=== PATIENT | female | born 1980 | race Caucasian/White ===

== ENCOUNTER 2016-08-06 23:49 | Observation (INO) ==
--- NOTE | 2016-08-07 00:17 | OB/GYN Progress Note ---
Date of Encounter: 08/07/16 Time of Encounter: 00:16 - Assessment and Plan (1) NST (non-stress test) reactive Current Visit: Yes Status: Acute Baseline heart rate in the 120s, moderate variability; 15 x 15 accels: No decelerations. (2) 37 weeks gestation of Current Visit: Yes Status: Acute Patient describes intermittent contractions at irregular intervals occurring over the last week, normal movement, minimal leakage of fluid throughout the day. Nitrazine test negative. Cervical exam revealed closed cervical os without dilation 0% effaced posterior cervix that was moderate to firm consistency. No evidence of active labor during the course of her stay. Fluid is most likely related to urine leakage due to gravid uterus and increased intra-abdominal pressure. [place] over the past week and presentation today as false labor. Regular movement. Reassuring reactive NST. Physical exam benign : No evidence of pooling in the posterior fornix or bleeding. Patient encouraged to keep hydrated and to maintain pelvic rest. Plan to discharge home. Return precautions given, patient expressed understanding. Subjective - Subjective Principal diagnosis: Labor evaluation Interval history: Patient is a 36-year-old female prima gravid; G1 P 0 at 37 weeks and 2 /7 days a past medical history of PCOS with metabolic syndrome, essential hypertension, hypothyroidism , anxiety, obesity who presents today for "leaking fluid intermittently all day "and intermittent contractions that do not occur at regular intervals. Patient describes small amount of unknown color of fluid small quantity that minimally squirts into her underwear. No previous episodes in the past. Associated symptoms include: Anterior abdominal cramping with contractions that does not radiate to her back. Patient has changed her underwear several times with minimal amount of fluid leakage. Patient denies odor or vaginal discharge. Patient is unsure if these episodes are positional or related to increased intra-abdominal pressure such as coughing ,sneezing, standing. Patient admits: Recent fungal infection under right breast treated with fluconazole, bronchitis and sinusitis treated with antibiotics 3 weeks ago that has since resolved. Patient denies: recent intercourse, vaginal discharge, vaginal bleeding, dysuria, pyuria, hematuria, flank pain, fever, chills, abdominal trauma or falls , nausea, vomiting. movements: Normal active fetus Labor Plan: Estimated date of delivery 08/25/16 Induction: Planned for 08/16/16 Pain control: [Epidural; Nubainl] as needed however, patient would like to try labor without epidural initially. FHT: [Baseline heart rate 120s; moderate variability; 15 x 15 accels: No decelerations] TOCO: [Contractions irregular] Cervix: dilation [closed] cm, [0] % effaced, station [-5 ], consistency [firm] , position [posterior]. care: Since 9 weeks of at regular intervals as patient is high-risk she also is seen at [facility]. OB Doctor: Jg OB history: Total pregnancies 0. Total living children 0. DROP WIRER history: Sexually active first age of intercourse 22; total partners 2. Last Pap smear 10/06/13 Abnormal Pap smear 11/22/2002, atypical squamous cell changes of undetermined significance. Sexually transmitted infections HPV/condyloma Last menstrual period 11/19/15 Menses onset age 14 Labs: Blood Type: [A positive] GBS: [Negative on 07/29/16] Rubella: IgG antibody positive/immune HbSAG: negative T.pallidum: Antibody negative Varicella: Antibody negative HIV: Negative Other: Cystic fibrosis negative, chlamydia and gonorrhea negative. Baby: [Boy] Name: To be determined Mom plans to [bottlefeed] Circumcision:[Yes] Pacifier: Yes Senior Publications Specialist: Rhea Metcalf Antepartum ROS: loss of fluid, movement normal, contractions, no vaginal bleeding Objective - Exam FHR: auscultation normal, category 1 Auscultation: bilateral: normal Abdomen: Present: normal appearance, soft, gravid Uterus: Present: normal Cervical dilation: Closed Cervix effacement: 0 station: -5
== END 2016-08-07 00:56 | disposition home or self-care (01) ==
LOC: INTOOBSV 23:49 → 1NENULAB 23:49
PROVIDERS: ADMIT Student in an Organized Health Care Education/Training Program; ATTEND Student in an Organized Health Care Education/Training Program

== ENCOUNTER → 2016-08-12 18:32 | Observation (INO) ==
[2016-08-12 16:35] LABS: Basophils % 0.2 %; Eosinophils % 0.4 %; Hematocrit 34.1 % (35.3-44.9); Hemoglobin 11.1 g/dL (11.5-15.4); Immature Granulocytes % 0.3 % (0-4); Immature Platelets 10.5 % (1.1-6.1); Lymphocytes # 1.2 K/mcL (0.6-4.6); Mean Corpuscular HGB Conc 32.6 g/dL (31.6-35.5); Mean Corpuscular Hemoglobin 27.8 pg (28.0-33.3); Mean Corpuscular Volume 85.3 fL (83.0-100.0); Mean Platelet Volume 11.2 fL (9.4-12.4); Monocytes # 0.5 K/mcL (0.0-1.3); Monocytes % 5.1 %; Neutrophils # 7.4 K/mcL (1.6-8.9); Platelet Count 217 K/mcL (140-400); Red Cell Distribution Width 14.6 % (11.5-14.5)
[2016-08-12 16:49] LABS: Alanine Aminotransferase 14 Units/L (0-55); Aspartate Amino Transferase 25 Units/L (5-34); BUN/Creatinine Ratio 13 (6-26); Blood Urea Nitrogen 9 mg/dL (7-20); Lactate Dehydrogenase 202 Units/L (159-327); Uric Acid 3.8 mg/dL (2.6-6.0); eGFR For African Americans > 60 (> 60); eGFR For Non-African Americans > 60 (> 60)
--- NOTE | 2016-08-12 17:17 | OB/GYN History & Physical ---
Date of Encounter: 08/12/16 Time of Encounter: 17:10 Assessment and Plan (1) with 38 completed weeks gestation Status: Acute Primary OB concern for PIH. Baseline BPs 110 systolic. BP on office intake 142 /88 with trace protein. Cervix fingertip/40%/-1. Assessment: at 38w 1d. BP during my evaluation: 122/82. NST reactive on external FHR. Contractions intermittant. Plan: PIH labs. Disposition pending observation and labs. May consider sending home vs induction of . May consider Cesarian pending tolerance of contractions. Patient's next appointment with Dr. Gregorio: (3 days). Patient scheduled for elective induction Friday (4 days). (2) First in adolescent 16 years of age or older in third trimester Status: Acute as above (3) Chronic hypertension Status: Acute as above (4) Gestational diabetes mellitus (GDM) Status: Acute as above Qualifiers: Gestational diabetes mellitus control: oral hypoglycemic-controlled Trimester: third trimester Qualified Code(s): O24.415 - Gestational diabetes mellitus in , controlled by oral hypoglycemic drugs History of Present Illness Chief complaint: PIH evaluation HPI: Ms. Kitchen is a 36 year old female presents from Dr. Gregorio's office with concerns regarding pre-eclampsia. Patient has chronic hypertension; systolic typically 110 range. Was 142/[address] Gregorio's office with trace urinary protein. Patient reports feeling occasional contractions. No blood or fluid vaginal discharge. Per Dr. Gregorio, DM well controlled on metformin and patient's office cervical exam was fingertip dilation, 40% effacement, -1 station. Patient's NST was reactive. Next appointment with Dr. Gregorio is . Scheduled induction Friday. unknown duration or frequency. 38w 1d PMH: Gestational diabetes. Chronic hypertension. Obesity. Hypothyroidism. Fe -deficient anemia. Depression. Medications: labetolol, metformin, zoloft, iron supplementation, synthroid Blood type A+ GBS (-) Rubella (+) Varicella (+) HbSAg (-) T. Pallidum (-) Suman Poole's note, agree with above. Patient is a 36-year-old female who had presented from the office due to some elevated blood pressures. Patient has chronic hypertension and had proteinuria. Patient was sent to have a PIH workup to make sure she is stable. All lab work came back normal protein creatinine ratio was normal. Patient is scheduled for an induction of labor at the end of the week Past Med Surg Social Fam HX - Past Medical History Medical history: hypertension Psychiatric history: anxiety - Past Surgical History Surgical History: no surgical history - Social History Smoking Status: Never smoker Smokeless Tobacco Status: No Alcohol use: none Drug use: none - Family History Mother Adopted: No Living Status: Still Living Hx Family Endocrine Disorder: Yes (diabetes) Sister Living Status: Still Living Hx Family Cardiac Disorders: Yes (mitral valve prolapse) Obstetrical History - Pregnancies : 1 Para: 0 Term: 0 : 0 Ab's: 0 Livin Medications and Allergies Labetalol [Trandate] 50 mg PO BID 04/19/16 [History] Levothyroxine [Synthroid] 88 mcg PO DAILY 04/19/16 [History] Metformin [Glucophage] 1,000 mg PO BID 04/19/16 [History] Sertraline [Zoloft] 100 mg PO DAILY 04/19/16 [History] Ferrous Sulfate 1 tab PO BID 08/12/16 [History] Vit Calc,Iron,Folic [ Vitamins] 1 tab PO DAILY 08/12/16 [ History] Allergies cephalexin [From Keflex] Allergy (Verified 08/12/16 16:36) Hives ciprofloxacin [From Cipro] Allergy (Verified 08/12/16 16:36) Hives doxycycline Allergy (Verified 08/12/16 16:36) Hives Penicillins Allergy (Verified 08/12/16 16:36) Hives Review of System OB - Constitutional Constitutional ROS IM: no fever(s), no headache(s), no lethargy, no weakness - Nose, mouth, and throat Nose, mouth and throat: no nasal congestion - Cardiovascular Cardiovascular: pedal edema, no chest pain, no claudication, no dyspnea, no lightheadedness, no palpitations - Respiratory Respiratory: no cough, no dyspnea, no wheezing, no chest congestion - Gastrointestinal Gastrointestinal: no change in bowel habits, no constipation, no cramping, no diarrhea, no heartburn, no nausea, no vomiting - Genitourinary Genitourinary: no flank pain, no pelvic pain, no vaginal discharge - Neurological Nerological: no numbness, no paresthesias, no vertigo, no weakness Exam - Constitutional Constitutional: well developed, well nourished, no acute distress, average body habitus - HEENT HEENT: EOMI, Normocephaly - Neck Neck exam: normal inspection - Lungs Respiratory exam: CTAB - Cardiovascular Cardiovascular exam: RRR, +S1, +S2 - Abdomen Abdomen: Present: bowel sounds normal, gravid, non tender. Absent: guarding noted - Extremities Extremities exam: normal capillary refill, pedal edema (trace bilatearlly), radial pulses palpable and symetrical Results Result Diagrams: 08/12/16 16:20 08/12/16 16:20 Abnormal lab results Hgb 11.1 g/dL (11.5-15.4) L 08/12/16 16:20 Hct 34.1 % (35.3-44.9) L 08/12/16 16:20 MCH 27.8 pg (28.0-33.3) L 08/12/16 16:20 RDW 14.6 % (11.5-14.5) H 08/12/16 16:20 Immature Plt Fraction 10.5 % (1.1-6.1) H 08/12/16 16:20 All other labs normal. - Attending Attestation I examined this patient and my medical decision-making was reviewed with the SANITIZER/PA/Advanced Practice Nurse/Resident Physician. I agree with the documented findings, disposition and treatment plan as described except to the extent set forth below.
[2016-08-12 17:54] LABS: Protein/Creatinine Ratio,Urine 0.12 mg/mg (0-0.20)
== END | disposition home or self-care (01) ==
LOC: 1NENULAB
PROVIDERS: ADMIT Obstetrics & Gynecology; ATTEND Obstetrics & Gynecology

== ENCOUNTER 2016-08-16 17:50 | Inpatient (IN) ==
[2016-08-16] MEDS ORDERED: Naloxone 0.4 MG/ML INJ IVP PRN (19:19)
[2016-08-16] MEDS ORDERED: Famotidine 20 MG/2 ML VIAL IVP PRN (19:19)
[2016-08-16] MEDS ORDERED: miSOPROStol 25 MCG TABLET VG ONE (19:21)
[2016-08-16 19:29] LABS: Basophils % 0.1 %; Eosinophils % 0.3 %; Hemoglobin 10.8 g/dL (11.5-15.4); Immature Granulocytes % 0.4 % (0-4); Lymphocytes # 0.9 K/mcL (0.6-4.6); Lymphocytes % 12.9 %; Mean Corpuscular HGB Conc 33.8 g/dL (31.6-35.5); Mean Corpuscular Hemoglobin 28.6 pg (28.0-33.3); Mean Corpuscular Volume 84.7 fL (83.0-100.0); Mean Platelet Volume 11.7 fL (9.4-12.4); Monocytes # 0.4 K/mcL (0.0-1.3); Monocytes % 5.1 %; Neutrophils # 5.8 K/mcL (1.6-8.9); Platelet Count 211 K/mcL (140-400); Red Blood Count 3.78 M/mcL (3.82-4.97); Red Cell Distribution Width 14.9 % (11.5-14.5); Segmented Neutrophils % 81.2 %
[2016-08-16] MEDS ORDERED: D5% in 0.45% NACL 1,000 ML IVC SCH (19:30)
--- NOTE | 2016-08-16 22:12 | Anesthesia Evaluation PreOp ---
Date of Encounter: 08/16/16 Time of Encounter: 22:10 - Past History Planned Operation: KALEN Cardiac History: HTN (chronic) Pulmonary History: Denies Any Significant HX CUSTOMS COMPLIANCE DIRECTOR History: Other (sciatica LLE > RLE) Other Medical History: Renal (proteinuria during this ), Thyroid, Other (gestational diabetes managed with metformin) Anesthesia History: No Prior Anesthetic Complications (never had any procedure requiring GA or NA; denies family h/o anesthesia complications) : Yes Test: Positive Alcohol Use: none Drug use: none Medications and Allergies Labetalol [Trandate] 50 mg PO BID 04/19/16 [History] Levothyroxine [Synthroid] 88 mcg PO DAILY 04/19/16 [History] Metformin [Glucophage] 1,000 mg PO BID 04/19/16 [History] Sertraline [Zoloft] 150 mg PO DAILY 04/19/16 [History] Ferrous Sulfate 1 tab PO BID 08/12/16 [History] Vit Calc,Iron,Folic [ Vitamins] 1 tab PO DAILY 08/12/16 [ History] Allergies cephalexin [From Keflex] Allergy (Verified 08/12/16 16:36) Hives ciprofloxacin [From Cipro] Allergy (Verified 08/12/16 16:36) Hives doxycycline Allergy (Verified 08/12/16 16:36) Hives Penicillins Allergy (Verified 08/12/16 16:36) Hives - Meds/Allergy Pre-op Review Medications Reviewed: Yes Allergies Reviewed: Yes Beta Blockers on Current Med List: Yes If Beta Blockers taken, Date/Time (Last Dose taken): 08/16/2016 @0800 Anesthesia Results - Labs 08/16/16 19:17 Anesthesia Exam 132/82; HR 77; RR 16 Height: 1.75m Weight: 127kg NPO (# of Hours): >8hrs Pain Scale: 0 Pain Scale Used: Numeric (1 - 10) - HEENT Pupil (Motor): Pupils equal Mallampati: II Teeth: Normal Oral Opening: Greater than 3 - CUSTOMS COMPLIANCE DIRECTOR LOC: Oriented CUSTOMS COMPLIANCE DIRECTOR Motor: Normal RUE, Normal LUE, Normal RLE, Normal LLE, Normal Face CUSTOMS COMPLIANCE DIRECTOR Sensory: Normal: RUE, LUE, RLE, LLE, Face - Cardiac Rhythm: Regular Murmur: None JVD: No Carotid Bruit: No - Pulmonary Breath Sounds: bilateral Clear Respiratory Effort: Symmetrical Anesthesia Assess/Plan ASA Score: 3 Modified Ryan Scale for Level of Consciousness: Cooperative, oriented, and tranquil Anesthetic Plan: Regional Autologous Blood: No Monitoring Plan: Standard Monitors Recovery Plan: Other
[2016-08-16] MEDS ORDERED: Bupivacaine-MPF 0.25% 10 ML VIAL EP ONE (22:18)
[2016-08-16] MEDS ORDERED: *HR* FentaNYL (PF) 100 MCG/2 ML VIAL EP ONE (22:18)
[2016-08-16] MEDS ORDERED: *HR* Metformin 500 MG TABLET PO SCH (22:26)
[2016-08-16] MEDS ORDERED: Epidural Premix (fent/bupiv) 110 ML EP SCH (22:30)
[2016-08-17] MEDS ORDERED: miSOPROStol 100 MCG TABLET PO ONE (01:08)
--- NOTE | 2016-08-17 01:46 | OB/GYN History & Physical ---
Date of Encounter: 08/17/16 Time of Encounter: 01:44 Assessment and Plan (1) 38 weeks gestation of Current visit: Yes Status: Acute (2) Chronic hypertension Current visit: No Status: Acute (3) Gestational diabetes mellitus (GDM) Current visit: Yes Status: Acute Induction orders given by Dr Gregorio: cytotec and cervical godwin catheter GBS negative Expectant management Vaginal delivery expected POC discussed with Dr Mcnally. Qualifiers: Gestational diabetes mellitus control: oral hypoglycemic-controlled Qualified Code(s): O24.415 - Gestational diabetes mellitus in , controlled by oral hypoglycemic drugs History of Present Illness Chief complaint: Induction of labor HPI: Ms. Kitchen is a 36 year old patient at 38/[address] Gregorio arriving for induction of labor due to chronic hypertension and gestational diabetes controlled with medication. Her blood type is A positive, she is GBS negative, and the remaining serology were negative. She states positive movement, denies contractions, leaking of fluid, and vaginal bleeding. Past Med Surg Social Fam HX - Past Medical History Medical history: hypertension, other Psychiatric history: anxiety - Past Surgical History Surgical History: no surgical history - Social History Smoking Status: Never smoker Smokeless Tobacco Status: No Alcohol use: none Drug use: none - Family History Mother Adopted: No Living Status: Still Living Hx Family Endocrine Disorder: Yes (diabetes) Sister Living Status: Still Living Hx Family Cardiac Disorders: Yes (Mitral valve prolapse) Obstetrical History - Pregnancies : 1 Para: 0 Term: 0 : 0 Ab's: 0 Livin Medications and Allergies Labetalol [Trandate] 50 mg PO BID 04/19/16 [History] Levothyroxine [Synthroid] 88 mcg PO DAILY 04/19/16 [History] Metformin [Glucophage] 1,000 mg PO BID 04/19/16 [History] Sertraline [Zoloft] 150 mg PO DAILY 04/19/16 [History] Ferrous Sulfate 1 tab PO BID 08/12/16 [History] Vit Calc,Iron,Folic [ Vitamins] 1 tab PO DAILY 08/12/16 [ History] Allergies cephalexin [From Keflex] Allergy (Verified 08/12/16 16:36) Hives ciprofloxacin [From Cipro] Allergy (Verified 08/12/16 16:36) Hives doxycycline Allergy (Verified 08/12/16 16:36) Hives Penicillins Allergy (Verified 08/12/16 16:36) Hives Review of System OB All systems PM: reviewed and no additional remarkable complaints except as stated Exam - Constitutional Constitutional: well developed, well nourished, no acute distress, average body habitus - HEENT HEENT: Normocephaly, Mucus Membranes Moist - Neck Neck exam: full ROM, normal inspection - Lungs Respiratory exam: CTAB - Cardiovascular Cardiovascular exam: RRR, +S1, +S2 - Abdomen Abdomen: Present: bowel sounds normal, gravid, non tender - Extremities Extremities exam: normal capillary refill, normal inspection, pedal edema, radial pulses palpable and symetrical - Vulva Vulva: bilateral: normal - Vagina Vagina: Present: normal moisture - Cervix Dilation: 1 Effacement: 60 Station: -2 - Uterus Uterus exam: Present: normal size, normal contour. Absent: tender - Anus/Rectum Anus/Rectum: Present: normal perianal skin Results Result Diagrams: 08/16/16 19:17 Abnormal lab results RBC 3.78 M/mcL (3.82-4.97) L 08/16/16 19:17 Hgb 10.8 g/dL (11.5-15.4) L 08/16/16 19:17 Hct 32.0 % (35.3-44.9) L 08/16/16 19:17 RDW 14.9 % (11.5-14.5) H 08/16/16 19:17 POC Glucose 100 (58-89) H 08/16/16 22:42 All other labs normal. - VTE Reasons for not Prescribing Prophylaxis: Treatment not Indicated - Low risk for VTE
--- NOTE | 2016-08-17 02:04 | OB Labor Progress Note ---
Date of Encounter: 08/17/16 Time of Encounter: 02:02 Labor Progress Note - Subjective Subjective: Patient resting comfortably in bed. - Cervix Cervix: 1/70/-2 moderate softness and midposition - Heart Tones Heart Tones: 150's with moderate variability and 15x15 accels. no decels noted - [place]: irregular contractions - Interventions Interventions: Intracervical godwin catheter placed without difficulty; 30 cc sterile water. Patient and fetus tolerated well. - Plan Plan: Continue with expectant management Patient may have epidural upon request Vaginal delivery expected POC discussed with Dr Mcnally.
[2016-08-17] MEDS ORDERED: 0.9 % Sodium Chloride 1,000 ML ONE ×4 (04:11→21:14)
[2016-08-17 04:22] LABS: Alanine Aminotransferase 14 Units/L (0-55); Aspartate Amino Transferase 22 Units/L (5-34); BUN/Creatinine Ratio 18 (6-26); Blood Urea Nitrogen 13 mg/dL (7-20); Lactate Dehydrogenase 249 Units/L (159-327); Uric Acid 4.2 mg/dL (2.6-6.0); eGFR For African Americans > 60 (> 60); eGFR For Non-African Americans > 60 (> 60)
[2016-08-17] MEDS: *HR* Nalbuphine 20 MG/ML AMPUL IVP PRN ×2 (06:04→09:57)
[2016-08-17] MEDS ORDERED: Epidural Premix (fent/bupiv) 110 ML EP ONE ×3 (07:29→21:55)
--- NOTE | 2016-08-17 07:50 | OB/GYN Progress Note ---
Date of Encounter: 08/17/16 Time of Encounter: 07:48 Subjective - Subjective Interval history: Comfortable after nubain . Objective - Vital Signs Vital Signs: Intake and Output 08/16/16 08/16/16 08/17/16 15:59 23:59 07:59 Other: Weight 127.2 kg Blood Glucose* 100 - Exam FHR: category 1 Cervical dilation: 2-3 Cervix effacement: 80 station: -1 - Labs Labs: Abnormal lab results RBC 3.78 M/mcL (3.82-4.97) L 08/16/16 19:17 Hgb 10.8 g/dL (11.5-15.4) L 08/16/16 19:17 Hct 32.0 % (35.3-44.9) L 08/16/16 19:17 RDW 14.9 % (11.5-14.5) H 08/16/16 19:17 POC Glucose 100 (58-89) H 08/16/16 22:42
--- NOTE | 2016-08-17 10:59 | OB/GYN Progress Note ---
Date of Encounter: 08/17/16 Time of Encounter: 10:57 Subjective - Subjective Interval history: Requests epidural . Objective - Vital Signs Vital Signs: Intake and Output 08/16/16 08/17/16 08/17/16 23:59 07:59 15:59 Other: Weight 127.2 kg Blood Glucose* 100 - Exam FHR: category 1 Abdomen: Present: gravid Cervical dilation: 4-5 Cervix effacement: 80 station: -1 - Labs Labs: Abnormal lab results RBC 3.78 M/mcL (3.82-4.97) L 08/16/16 19:17 Hgb 10.8 g/dL (11.5-15.4) L 08/16/16 19:17 Hct 32.0 % (35.3-44.9) L 08/16/16 19: RDW 14.9 % (11.5-14.5) H 08/16/16 19:17 POC Glucose 100 (58-89) H 08/16/16 22:42
--- NOTE | 2016-08-17 11:30 | Anesthesia Procedures ---
Date of Encounter: 08/17/16 Time of Encounter: 12:08 Procedures: Anesthesia - Epidural/Spinal Patient ID/Chart reviewed: Yes Patient examined: Yes OB Eval: Gestational age: tem OB Eval: : 1 OB Eval: Hx Para: 0 OB Eval: Contractions: Non-stressed pattern Consent Obtained: Yes Supplemental Oxygen: None/Room Air Site Prep: Aseptic Technique, Sterile prep and drape, 0.5% Chlorhexidine/Alcohol Patient position: upright Local Anesthetic: Lidocaine 1% Amount of Local Anesthetic used: 2 Touhy Needle Gauge: 18 Touhy Needle Depth (cm): 8 Catheter Depth at Skin (cm): 5 Test Dose (1.5% Lido + Epi): Volume given (mls): 3 Test Dose Result: Negative Loading Dose: Other: 14ml from solution Loading Dose Administered: Thru Catheter Infusion Med: 0.125% Bupivacaine w/ 2 mcg/ml Fentanyl Infusion Rate (mls/hr): [address]: Tegaderm, Tape, Other (taped once lateral to ensure catheter movement ) Interspace Used: L3-L4 Loss of Resistance (AMANDEEP): Yes (saline) Blood: No CSF: No Paresthesia: No Procedure: vss though out, FHR stable per RN's
--- NOTE | 2016-08-17 11:51 | OB/GYN Progress Note ---
Date of Encounter: 08/17/16 Time of Encounter: 11:49 Subjective - Subjective Interval history: Comfortable with epidural Objective - Vital Signs Vital Signs: Intake and Output 08/16/16 08/17/16 08/17/16 23:59 07:59 15:59 Other: Weight 127.2 kg Blood Glucose* 100 - Exam FHR: category 1 Cervical dilation: 6 Cervix effacement: 90 station: -1 Comments: IUPC placed - Labs Labs: Abnormal lab results RBC 3.78 M/mcL (3.82-4.97) L 08/16/16 19:17 Hgb 10.8 g/dL (11.5-15.4) L 08/16/16 19:17 Hct 32.0 % (35.3-44.9) L 08/16/16 19:17 RDW 14.9 % (11.5-14.5) H 08/16/16 19:17 POC Glucose 100 (58-89) H 08/16/16 22:42
[2016-08-17] MEDS ORDERED: Oxytocin 20 units/ LR 1000 mL 20 UNIT/1,000 ML BAG IVC ONE (16:09)
--- NOTE | 2016-08-17 17:22 | OB/GYN Progress Note ---
Date of Encounter: 08/17/16 Time of Encounter: 17:20 Subjective - Subjective Interval history: Laboring down Objective - Exam FHR: category 1 Cervical dilation: complete station: 0 - Labs Labs: Abnormal lab results RBC 3.78 M/mcL (3.82-4.97) L 08/16/16 19:17 Hgb 10.8 g/dL (11.5-15.4) L 08/16/16 19:17 Hct 32.0 % (35.3-44.9) L 08/16/16 19:17 RDW 14.9 % (11.5-14.5) H 08/16/16 19:17 POC Glucose 100 (58-89) H 08/16/16 22:42
[2016-08-17] MEDS ORDERED: Oxytocin 20 units/ LR 1000 mL 20 UNIT/1,000 ML BAG IVC SCH ×2 (18:45→23:48)
[2016-08-17] MEDS ORDERED: Lidocaine 1% 20 ML MDV ONE (22:44)
[2016-08-17] MEDS ORDERED: Acetaminophen 325 MG TABLET PO PRN (23:48)
[2016-08-17] MEDS ORDERED: *HR* HYDROcodone/Acet 5/325 mg TABLET PO PRN (23:48)
[2016-08-17] MEDS ORDERED: Measles/Mumps/Rubella Vacc 0.5 ML VIAL SQ PRN (23:48)
--- NOTE | 2016-08-17 23:48 | OB/GYN Procedure Note ---
Delivery - Delivery Date: 08/17/16 Provider: Austin Gregorio Intrapartum events: prolonged 2nd stage>2.5hr Delivery induction: godwin, misoprostol Delivery augmentation: pitocin Delivery monitor: external FHT, external uterine, internal uterine Anesthesia: epidural Estimated Blood Loss: 500 - (s) A Delivery Date: 08/17/16 Delivery Time: 22:49 Presentation: vertex Position: KYLE Route of delivery: Gender: Male Viability: Viable Pounds: 9 Ounces: 3 at 1 minute: 8 at 5 mins: 9 Shoulder Dystocia: not encountered Placenta: spontaneous Cord: nuchal reduced - Repair Episiotomy: none Laceration Description: Perineal - 3rd Degree - Complications Delivery complications: none - Disposition Mom disposition: stable in LDR [place] disposition: stable in LDR - Comments Comments: Patient progressed to complete. She delivered a live male weighing 9 lbs. 3 oz. over a third-degree laceration with Apgars of 8 and 9. Position was left occiput anterior position. Placenta delivered intact. EBL was 500 mL. Time of delivery was 2249. Third-degree laceration was repaired in anatomic fashion using 2-0 Vicryl , 2-0 Monocryl and 3-0 Monocryl. Baby and mother were doing well skin to skin .
[2016-08-18] MEDS: Ibuprofen 600 MG TABLET PO PRN ×3 (00:38→20:20)
[2016-08-18 07:36] LABS: Hematocrit 26.4 % (35.3-44.9); Hemoglobin 8.6 g/dL (11.5-15.4); Mean Corpuscular HGB Conc 32.6 g/dL (31.6-35.5); Mean Corpuscular Hemoglobin 28.1 pg (28.0-33.3); Mean Corpuscular Volume 86.3 fL (83.0-100.0); Platelet Count 213 K/mcL (140-400); Red Blood Count 3.06 M/mcL (3.82-4.97); Red Cell Distribution Width 15.5 % (11.5-14.5)
[2016-08-18 08:08] LABS: Lymphocytes # 1.6 K/mcL (0.6-4.6); Monocytes # 0.5 K/mcL (0.0-1.3); Neutrophils # 24.4 K/mcL (1.6-8.9)
[2016-08-18 08:09] LABS: Platelet Estimate Normal (Normal)
[2016-08-18] MEDS: Prenatal Vit/FA 1 EACH TABLET PO SCH (08:42)
[2016-08-18] MEDS ORDERED: Prenatal Vit/FA 1 EACH TABLET PO SCH (09:00)
--- NOTE | 2016-08-18 10:48 | OB/GYN Progress Note ---
Date of Encounter: 08/18/16 Time of Encounter: 10:43 - Assessment and Plan (1) Status post vaginal delivery Current Visit: Yes Status: Acute Routine PP care. Subjective - Subjective Patient reports: appetite normal, voiding normally, pain well controlled, ambulating normally : doing well Objective - Latest Vital Signs Latest vital signs: Vital Signs Temp Pulse Resp BP Pulse Ox 08/18/16 08:52 16 08/18/16 08:35 97.8 F 104 16 104/67 96 08/18/16 03:50 98.3 F 113 16 106/69 96 08/18/16 02:50 98.8 F 116 20 103/68 97 08/18/16 01:50 98.1 F 121 18 132/82 96 Intake and Output 08/17/16 08/18/16 08/18/16 23:59 07:59 15:59 Intake Total 670 / 670 Output Total 1000 / 1000 Balance -330 / -330 Intake: IV Fluids 470 / 470 Pitocin 20 unit In 1,000 470 / 470 ml @ 125 mls/hr IVC .Q8H MYLES Rx#:[id number] Oral 200 / 200 Output: Urine 100 / 100 Estimated Blood Loss 500 / 500 Catheter 400 / 400 Other: Weight 122.8 kg Patient Weight 08/18/16 23:59 Weight 122.8 kg - Exam Lungs: bilateral: normal Chest: Normal S1, Normal S2 Extremities: Present: normal. Absent: tenderness Abdomen: Present: normal appearance, soft Uterus: Present: firm. Absent: tenderness Uterus Position: At Umbilicus - Labs Labs: Laboratory Results - last 24 hr 08/18/16 08/18/16 06:51 06:51 WBC 26.5 H D RBC 3.06 L Hgb 8.6 L D Hct 26.4 L MCV 86.3 MCH 28.1 MCHC 32.6 RDW 15.5 H Plt Count 213 MPV 12.0 Seg Neutrophils % 92.0 Lymphocytes % 6.0 Monocytes % 2.0 Neutrophils # 24.4 H Lymphocytes # 1.6 Monocytes # 0.5 Platelet Estimate Normal Glucose 124 H
[2016-08-18] MEDS: *HR* Metformin 500 MG TABLET PO SCH (20:22)
[2016-08-19] MEDS: Ibuprofen 600 MG TABLET PO PRN (07:13)
--- NOTE | 2016-08-19 07:41 | Discharge Summary ---
Date of Encounter: 08/19/16 Time of Encounter: 07:38 - Discharge Diagnosis (1) Vaginal delivery Priority: Primary Status: Acute Comments: pt states feels well. Bottle feeding. pain well managed on PO medication. desires discharge (2) Third degree perineal laceration Priority: Secondary Status: Acute - Discharge Medications Prescriptions: Ibuprofen [Motrin] 600 mg PO Q6HR PRN #60 tablet PRN Reason: Cramping Docusate [Colace] 100 mg PO BID #60 capsule Ferrous Sulfate 1 mg PO BIDWM #60 tablet Home Medications: Labetalol [Trandate] 50 mg PO BID 04/19/16 [History] Levothyroxine [Synthroid] 88 mcg PO DAILY 04/19/16 [History] Metformin [Glucophage] 1,000 mg PO BID 04/19/16 [History] Sertraline [Zoloft] 150 mg PO DAILY 04/19/16 [History] Vit Calc,Iron,Folic [ Vitamins] 1 tab PO DAILY 08/12/16 [ History] Acetaminophen [Tylenol] 650 mg PO Q6HR PRN #0 tablet 08/19/16 [Rx] Docusate [Colace] 100 mg PO BID #60 capsule 08/19/16 [Rx] Ferrous Sulfate 1 mg PO BIDWM #60 tablet 08/19/16 [Rx] Ibuprofen [Motrin] 600 mg PO Q6HR PRN #60 tablet 08/19/16 [Rx] Labetalol [Trandate] 50 mg PO BID #0 tablet 08/19/16 [Rx] Levothyroxine [Synthroid] 88 mcg PO 0630 #0 tablet 08/19/16 [Rx] Allergies/Adverse Reactions: Allergies cephalexin [From Keflex] Allergy (Verified 08/12/16 16:36) Hives ciprofloxacin [From Cipro] Allergy (Verified 08/12/16 16:36) Hives doxycycline Allergy (Verified 08/12/16 16:36) Hives Penicillins Allergy (Verified 08/12/16 16:36) Hives Data Procedures and tests throughout hospitalization: Laboratory Tests 08/16/16 08/16/16 08/16/16 19:17 19:17 22:42 WBC 7.1 RBC 3.78 L Hgb 10.8 L Hct 32.0 L MCV 84.7 MCH 28.6 MCHC 33.8 RDW 14.9 H Plt Count 211 MPV 11.7 Immature Gran % 0.4 Seg Neutrophils % 81.2 Lymphocytes % 12.9 Monocytes % 5.1 Eosinophils % 0.3 Basophils % 0.1 Neutrophils # 5.8 Lymphocytes # 0.9 Monocytes # 0.4 Eosinophils # 0.0 Basophils # 0.0 Platelet Estimate BUN 13 Creatinine 0.72 Est GFR ( Amer) > 60 Est GFR (Non-Af Amer) > 60 BUN/Creatinine Ratio 18 Glucose POC Glucose 100 H Uric Acid 4.2 AST 22 ALT 14 Lactate Dehydrogenase 249 08/18/16 08/18/16 06:51 06:51 WBC 26.5 H D RBC 3.06 L Hgb 8.6 L D Hct 26.4 L MCV 86.3 MCH 28.1 MCHC 32.6 RDW 15.5 H Plt Count 213 MPV 12.0 Immature Gran % Seg Neutrophils % 92.0 Lymphocytes % 6.0 Monocytes % 2.0 Eosinophils % Basophils % Neutrophils # 24.4 H Lymphocytes # 1.6 Monocytes # 0.5 Eosinophils # Basophils # Platelet Estimate Normal BUN Creatinine Est GFR ( Amer) Est GFR (Non-Af Amer) BUN/Creatinine Ratio Glucose 124 H POC Glucose Uric Acid AST ALT Lactate Dehydrogenase Labs on day of discharge: Labs from last 24 hours 08/18/16 08/18/16 06:51 06:51 WBC 26.5 H D RBC 3.06 L Hgb 8.6 L D Hct 26.4 L MCV 86.3 MCH 28.1 MCHC 32.6 RDW 15.5 H Plt Count 213 MPV 12.0 Seg Neutrophils % 92.0 Lymphocytes % 6.0 Monocytes % 2.0 Neutrophils # 24.4 H Lymphocytes # 1.6 Monocytes # 0.5 Platelet Estimate Normal Glucose 124 H Date of admission: 08/16/16 17:50 Primary care physician: Stephen Ivey MD Consults: 08/17/16 23:48 Consult to [facility]udder [CONS] Routine Comment: Vaginal delivery, consult needed Discharging clinician: Radha Gregg Anticipated date of discharge: 08/19/16 - Patient Status Disposition: Home, Self-Care Condition: Good Functional capacity at discharge: independent ambulation Overall status at discharge: patient is back to baseline - Discharge Instructions Follow Up With: Stephen Ivey MD [Primary Care Provider] - Austin Gregorio MD [Partnered Physician] - (September 16, 2016 @ 1:30 pm) - Diet and Activity Activity: resume usual activities as tolerated Diet: regular diet Hospital Course Reason for admission: induction of labor, IUP at term Delivery: Episiotomy: none Laceration: 3rd degree Other procedures: none complications: none Discharge diagnosis: IUP at term delivered [place] baby: male Hospital course: Delivery - Delivery Date: 08/17/16 Provider: Austin Gregorio Intrapartum events: prolonged 2nd stage>2.5hr Delivery induction: godwin, misoprostol Delivery augmentation: pitocin Delivery monitor: external FHT, external uterine, internal uterine Anesthesia: epidural Estimated Blood Loss: 500 - (s) A Infant Delivery Date: 08/17/16 Delivery Time: 22:49 Presentation: vertex Position: KYLE Route of delivery: Gender: Male Viability: Viable Pounds: 9 Ounces: 3 at 1 minute: 8 at 5 mins: 9 Shoulder Dystocia: not encountered Placenta: spontaneous Cord: nuchal reduced - Repair Episiotomy: none Laceration Description: Perineal - 3rd Degree - Complications Delivery complications: none - Disposition Mom disposition: stable in post and appropriate for discharge Time Attestation: Total time spent providing and/or coordinating discharge services: Time Spent: Less than 30 minutes Exam - Constitutional Vitals: Temp Pulse Resp BP Pulse Ox 98.1 F 118 16 114/72 96 08/18/16 20:20 08/18/16 20:20 08/18/16 20:20 08/18/16 20:20 08/18/16 20:20 General appearance IM: A&O X 3 - Respiratory Respiratory exam: Present: CTAB - Cardiovascular Cardiovascular exam IM: Present: RRR, +S1, +S2 - GI/Abdominal GI/Abdominal exam IM: normal bowel sounds, soft - Uterine Tone: Firm Uterus Position: At Umbilicus, Midline - Extremities Exam Extremities exam IM: Present: normal capillary refill, normal inspection - Neurological Exam Neurological exam: normal gait, oriented X3, reflexes normal - Psychiatric Additional comments: reports good mood.
[2016-08-19] MEDS: Prenatal Vit/FA 1 EACH TABLET PO SCH (08:16)
[2016-08-19] MEDS: *HR* Metformin 500 MG TABLET PO SCH (08:18)
[2016-08-19] MEDS ORDERED: Benzocaine/Menthol 56 GM AEROSOL SPRAY TP PRN (09:35)
[2016-08-19 11:46] VITALS: BP 110/77
== END 2016-08-19 10:19 | disposition home or self-care (01) | DRG 774 ==
LOC: 1NENULAB 17:50 → 1NENUOBS 08-18 01:35
PROVIDERS: ADMIT Obstetrics & Gynecology; ATTEND Obstetrics & Gynecology